=== PATIENT | female | born 1935 | race Asian ===

== ENCOUNTER 2019-05-09 15:46 | Emergency (ER) | payer MEDICARE, OTHER ==
[~2019-05-09] VITALS: Ht 165.1 cm; Wt 61.2 kg
[2019-05-09 15:50] VITALS: BP 135/95
--- NOTE | 2019-05-09 15:50 | NUR ---
ED Nurse Note: Pt BIBA from home d/t SOB, satting at 93% on RA. Placed on bed and gown; hooked to monitoring tech. RT on bedside, noted HR 121. Will continue to monitor.
[2019-05-09] MEDS ORDERED: Omnipaque 350 100ml vial INJ PRN (16:00)
[2019-05-09] MEDS: Albuterol/Ipratropium 3ml neb HHN SCH ×2 (16:12→16:13)
[2019-05-09 16:52] LABS: BASOPHILS % (AUTO) 0.8 % (0.0-2.0); EOSINOPHILS % (AUTO) 0.7 % (0.0-3.0); HEMATOCRIT 40.3 % (37.0-47.0); HEMOGLOBIN 12.7 G/DL (12.0-16.0); LYMPHOCYTES % (AUTO) 20.4 % (20.0-45.0); MEAN CORPUSCULAR VOLUME 92 FL (80-99); MONOCYTES % (AUTO) 4.8 % (1.0-10.0); NEUTROPHILS % (AUTO) 73.3 % (45.0-75.0); PLATELET COUNT 264 K/UL (150-450); RED BLOOD COUNT 4.41 M/UL (4.20-5.40); RED CELL DISTRIBUTION WIDTH 18.4 % (11.6-14.8)
[2019-05-09 16:57] LABS: INR 1.2 (0.9-1.1)
[2019-05-09 16:58] LABS: ANION GAP 14 mmol/L (5-15); BLOOD UREA NITROGEN 27 mg/dL (7-18); CALCIUM 8.7 MG/DL (8.5-10.1); CARBON DIOXIDE 20 MMOL/L (21-32); CHLORIDE 96 MMOL/L (98-107); CREATININE 0.9 MG/DL (0.55-1.30); POTASSIUM 4.1 MMOL/L (3.5-5.1); SODIUM 129 MMOL/L (136-145)
--- NOTE | 2019-05-09 17:08 | Diagnostic Imaging Report ---
Indication: Shortness of breath Technique: One view of the chest Comparison: none Findings: The heart is enlarged. There is bilateral interstitial and airspace edema diffusely. There is probably some pleural fluid bilaterally. Impression: Cardiomegaly Bilateral interstitial and airspace infiltrates versus edema and small bilateral pleural effusions
[2019-05-09 17:09] LABS: ALANINE AMINOTRANSFERASE 49 U/L (12-78); ALBUMIN 3.1 G/DL (3.4-5.0); ALBUMIN/GLOBULIN RATIO 0.8 (1.0-2.7); ALKALINE PHOSPHATASE 546 U/L (46-116); ASPARTATE AMINO TRANSFERASE 51 U/L (15-37); BILIRUBIN,TOTAL 1.3 MG/DL (0.2-1.0)
[2019-05-09 17:12] LABS: BILIRUBIN,DIRECT 0.3 MG/DL (0.0-0.3)
--- NOTE | 2019-05-09 18:14 | Diagnostic Imaging Report ---
ndication: Shortness of breath Technique: IV administration nonionic contrast. Spiral acquisitions obtained from the lung bases to the lung apices. Multiplanar and 3-D reconstructions were generated. Total dose length product 172 mGycm. CTDIvol(s) 31 mGy. Dose reduction achieved using automated exposure control Comparison: none Findings: There is good pulmonary arterial opacification. No intraluminal filling defects or other findings to suggest acute pulmonary embolus are demonstrated. Pulmonary arteries are mildly ectatic. The thoracic aorta is not well opacified, is no definite aneurysm or dissection demonstrated. There is some distention of the hepatic veins and inferior vena cava and some contrast reflux suggesting central venous hypertension. Heart is mildly enlarged. There is no isolated right ventricular dilatation There is a moderate to large right pleural effusion. There is resultant compressive atelectasis of a significant portion of the right lower lobe. There is a small left pleural effusion. There is some dependent and compressive atelectasis at the left lung base. There is generalized interstitial septal thickening. There is mild diffuse groundglass opacity bilaterally. No pericardial effusion. There are prominent but not frankly enlarged mediastinal lymph nodes present. The thyroid is unremarkable. No axillary or chest wall mass or adenopathy. There is mild diffuse edema of the subcutaneous fat. There are degenerative changes of the thoracic spine noted. Some sclerotic lesions are seen in the right humeral neck, probably bone islands. Unremarkable esophagus. The included upper abdominal anatomy is unremarkable. Impression: Negative for evidence of acute pulmonary embolus Cardiomegaly Evidence of congestive heart failure. Interstitial septal thickening and groundglass opacities likely represent pulmonary edema, there are bilateral pleural effusions, and distention of and contrast reflux into the inferior vena cava and hepatic veins suggest central venous hypertension. Evidence of anasarca, with diffuse edema of the subcutaneous fat in addition to the above This agrees with the preliminary interpretation provided overnight by [facility] teleradiology service, with minor variation. The CT scanner at [facility] is accredited by the [employer] and the scans are performed using protocols designed to limit radiation exposure to as low as reasonably achievable to attain images of sufficient resolution adequate for diagnostic evaluation.
[2019-05-09 18:22] VITALS: BP 135/95
--- NOTE | 2019-05-09 18:22 | NUR ---
AMA: SEE AMA FORM.
[2019-05-09 18:43] LABS: APPEARANCE,URINE CLEAR; BILIRUBIN, URINE NEGATIVE (NEGATIVE); COLOR,URINE YELLOW; GLUCOSE, URINE (UA) NEGATIVE (NEGATIVE); KETONES,URINE NEGATIVE (NEGATIVE); LEUKOCYTE ESTERASE ,URINE NEGATIVE (NEGATIVE); NITRITE,URINE NEGATIVE (NEGATIVE); PROTEIN,URINE NEGATIVE (NEGATIVE); UROBILINOGEN,URINE NORMAL MG/DL (0.0-1.0)
--- NOTE | 2019-05-09 20:32 | Emergency Room Report ---
History of Present Illness General Chief Complaint: Dyspnea/Respdistress Source: Patient (Nella Case) Present Illness HPI 83-year-old female with history of pleural effusion and CHF brought in by paramedics due to shortness of breath. Patient is a Urdu speaking only. Reports that about a year ago she broke her hip, had surgery done, and does not have any other medical condition. However her daughter arrives later and tells us that patient has been having CHF since the surgery was done last February and her left hip. Patient is noncompliant with her visits with [facility] day artist. Patient lives alone. Denies any syncope and headache and loss of consciousness and head injury. Speaks in full sentences, no unilateral or generalized weakness noted. No motor or sensory deficits noted. Complains of pleuritic chest pain upon resting and with exertion. Denies pain radiation. Complains of shortness of breath, wheezing and crackles noted actively. Patient also has some pericardial rubbing. Does not recall the name of the medication that she takes. Patient wants to be transferred to [facility] as her regular doctor is there. Denies abdominal pain, nausea vomiting, no other associate symptoms. Denies tobacco smoke, marijuana use, drug use, alcohol intake. Patient appears to be tachycardic, O2 sat is 93% upon arrival, patient on oxygen. (Nella Case) Allergies: Coded Allergies: No Known Allergies (Unverified , 05/09/19) Patient History Past Medical History: see triage record Past Surgical History: unable to obtain Pertinent Family History: none Now: No Immunizations: UTD Reviewed Nursing Documentation: PMH: Agreed; PSxH: Agreed (Nella Case) Nursing Documentation-PMH Past Medical History: No History, Except For Hx Hypertension: Yes (Nella Case) Review of Systems All Other Systems: negative except mentioned in HPI (Nella Case) Physical Exam Vital Signs Date Time Temp Pulse Resp B/P (MAP) Pulse Ox O2 Delivery O2 Flow Rate FiO2 05/09/19 15:40 97.5 125 18 135/95 (108) 94 Nasal Cannula 2.0 05/09/19 16:14 28 Sp02 EP Interpretation: reviewed, abnormal - O2 stat 93%, HR 126 General Appearance: alert, GCS 15, non-toxic, mild distress Head: normocephalic, atraumatic Eyes: bilateral eye normal inspection, bilateral eye PERRL ENT: hearing grossly normal, normal pharynx, no angioedema, normal voice Neck: full range of motion, supple/symm/no masses Respiratory: chest non-tender, no rhonchi, no respiratory distress, no retraction, crackles, speaking full sentences, wheezing Cardiovascular #1: normal capillary refill, tachycardia, friction rub Cardiovascular #2: 2+ carotid (R), 2+ carotid (L) Gastrointestinal: normal bowel sounds, non tender, soft, non-distended, no guarding, no rebound Genitourinary: no CVA tenderness Musculoskeletal: back normal, no calf tenderness, Reggie's Sign negative Neurologic: alert, motor strength/tone normal, oriented x3, sensory intact, responsive, speech normal Psychiatric: judgement/insight normal, memory normal, mood/affect normal, no suicidal/homicidal ideation Skin: no rash Lymphatic: no adenopathy (Nella Case) Medical Decision Making PA Attestation All my diagnosis and treatment plans were reviewed ad discussed with my supervising physician Dr. Malave (Nella Case) Medicare Attestation The history of Rodney Singh has been reviewed and management options for her have been examined and discussed by Josh Malave. I have personally examined and interviewed the patient. (Josh Malave MD) Diagnostic Impression: Primary Impression: Dyspnea Additional Impression: Respiratory distress ER Course 83-year-old female with history of pleural effusion and CHF brought in by paramedics due to shortness of breath. Patient is a Urdu speaking only. Reports that about a year ago she broke her hip, had surgery done, and does not have any other medical condition. However her daughter arrives later and tells us that patient has been having CHF since the surgery was done last February and her left hip. Patient is noncompliant with her visits with [facility] day artist. Patient lives alone. Denies any syncope and headache and loss of consciousness and head injury. Speaks in full sentences, no unilateral or generalized weakness noted. No motor or sensory deficits noted. Complains of pleuritic chest pain upon resting and with exertion. Denies pain radiation. Complains of shortness of breath, wheezing and crackles noted actively. Patient also has some pericardial rubbing. Does not recall the name of the medication that she takes. Patient wants to be transferred to [facility] as her regular doctor is there. Denies abdominal pain, nausea vomiting, no other associate symptoms. Denies tobacco smoke, marijuana use, drug use, alcohol intake. Patient appears to be tachycardic, O2 sat is 93% upon arrival, patient on oxygen. Ddx considered but are not limited to: [place], Angina, COPD, GERD, pleural effusion , pneumothorax, CHF, PE Vital signs: are WNL, pt. is afebrile H&PE are most consistent with pleural effusion bilaterally, CHF ORDERS: EKG, Chest XR, cardiac labs, CTA chest with contrast ED INTERVENTIONS: Prednisone, 3 treatments of albuterol ipratropium, oxygen, NS bolus Patient left AGAINST MEDICAL ADVICE, I asked x-ray systems technician Gabriel to translate for me, patient had full judgment with making decision of leaving AGAINST MEDICAL ADVICE, understanding the risks, and yet wanting to leave. (Nella Case) EKG Diagnostic Results Rate: tachycardiac Rhythm: other - tachy, A. fib ST Segments: no acute changes Other Impression No acute ST changes however A. fib noted (Nella Case) Chest X-Ray Diagnostic Results Chest X-Ray Diagnostic Results : Chest X-Ray Ordered: Yes # of Views/Limited/Complete: 1 View Indication: Shortness of Breath EP Interpretation: Yes PA Xray: Interpretation reviewed, by supervising MD, and agrees with findings. Interpretation: no pneumothorax, other - Bilateral pleural effusion noted Impression: Other - Bilateral pleural effusion Electronically Signed by: Nella Cantu PA-C (Nella Case) CT/MRI/US Diagnostic Results CT/MRI/US Diagnostic Results : Imaging Test Ordered: CTA chest with contrast Impression Impression: No central pulmonary embolism is detected. No peripheral pulmonary embolism is detected. Cardiomegaly and bilateral pleural effusions worrisome for congestive heart failure. Clinical correlation is advised. Probable anasarca. Incidental findings: Correlation is made to plain film evaluation of the chest performed earlier today. Evaluation of the right pulmonary parenchyma reveals findings of mild COPD. Evaluation of the left pulmonary parenchyma reveals findings of mild COPD. Moderate to large right pleural effusion is noted. Scattered ground-glass densities, areas of patchy airspace disease and some segmental atelectasis, muscle of the right lung base are noted. Small to moderate left pleural effusion and subsegmental atelectasis at the left lung base. Moreover, scattered patchy airspace disease and ground-glass densities are noted throughout the left lung of uncertain etiology. The airways patent. Atherosclerotic disease of the thoracic aorta. There is subcutaneous haziness suggestive of mild to moderate anasarca. Clinical correlation is advised. Fatty infiltration of the liver. Moderate degenerative disc disease of the thoracic spine. The sternum is unremarkable. (Nella Case) Last Vital Signs Date Time Temp Pulse Resp B/P (MAP) Pulse Ox O2 Delivery O2 Flow Rate FiO2 05/09/19 18:22 97.5 118 22 135/95 96 Nasal Cannula 2.0 28 (Nella Case) Disposition: AGAINST MEDICAL ADVICE Condition: Serious Referrals: NON PHYSICIAN (PCP) Nella Case May 09, 2019 20:32 Josh Malave MD May 17, 2019 13:57
== END 2019-05-09 18:22 | disposition left against medical advice (07) ==
LOC: EDBD 15:46 → EMR 17:20 → CANBEDREQ 18:24
DX: R06.09 Other forms of dyspnea (principal); I10 Essential (primary) hypertension; I50.9 Heart failure, unspecified; Z87.81 Personal history of (healed) traumatic fracture
CPT/HCPCS: 36415; 36600; 71045; 71275; 80053; 80307; 81003; 82248; 82803; 83880; 84484; 85025; 85610; 85730; 93005; 96360; 99284; J7030; J7512; Q9967; J7620